=== PATIENT | female | born 2000 | race Caucasian/White ===

== ENCOUNTER 2022-05-19 07:40 | Emergency (ER) | payer OTHER ==
[~2022-05-19] VITALS: Ht 165.1 cm; Wt 67.3 kg
[2022-05-19 07:47] VITALS: BP 117/60
[2022-05-19 08:21] LABS: COVID AG,FIA SOURCE NASAL SWAB
[2022-05-19 08:55] LABS: INFLUENZA TYPE A NEGATIVE FOR TYPE A (NEGATIVE)
[2022-05-19 08:58] LABS: INFLUENZA TYPE B POSITIVE FOR TYPE B (NEGATIVE)
== END 2022-05-19 08:33 | disposition left against medical advice (07) ==
LOC: EMS 07:45
DX: R50.9 Fever, unspecified (principal); J02.9 Acute pharyngitis, unspecified; Z20.822 Contact with and (suspected) exposure to COVID-19; Z53.21 Procedure and treatment not carried out due to patient leaving prior to being seen by health care provider
CPT/HCPCS: 87426; 87804; C9803